=== PATIENT | female | born 1945 | race Caucasian/White ===

== ENCOUNTER 2017-06-12 11:49 | Inpatient (IN) | payer MEDICARE ==
[~2017-06-12] VITALS: Ht 157.5 cm; Wt 64.2 kg
[~2017-06-12 11:49] MED LIST: BREO ELLIPTA 11 EACH INH; CALCIUM 600 +1 EAC7 PO; CLARITIN 10MG T10 MG PO; COLACE 100MG C100 MG PO; DEXAMETHASONE 44 MG PO; FERROUS SULFAT325 MG PO; FOLIC ACID 1 MG1 MG PO; LEVAQUIN750 MG PO; LEVOTHYROXINE25 MCG PO; LISINOPRIL10 MG PO; LOPRESSOR 50 MG50 MG PO; LORTAB 5-325 M1 EACH PO; MORPHINE SULFAT30 M4 PO; MUCINEX600 MG PO; NEURONTIN 300300 MG PO; PROTONIX 40 MG40 M1 PO; PROVENTIL HFA 61 INH INH; PULMICORT0.5 MG/2 M INH; REVLIMID25 MG PO; SYMBICORT 160-1 INHA INH; VELCADE SQ; VITAMIN B-122000 MC1 PO; VITAMIN C 500500 MG PO; XARELTO20 MG PO; ZANTAC300 MG PO; ZESTRIL10 MG PO; ZOMETA4 MG/5 ML INJ; ZOVIRAX 800 MG800 MG PO
[2017-06-12 16:24] LABS: HEMOGLOBIN 9.7 gm/dl (12.3-15.3); RED BLOOD COUNT 2.78 M/UL (4.00-5.10); WHITE BLOOD COUNT 9.7 K/UL (4.5-11.0)
[2017-06-13 04:18] LABS: HEMOGLOBIN 7.9 gm/dl (12.3-15.3); WHITE BLOOD COUNT 9.4 K/UL (4.5-11.0)
[2017-06-13 04:20] LABS: RED BLOOD COUNT 2.26 M/UL (4.00-5.10)
[2017-06-13] MEDS ORDERED: OMEPRAZOLE20 MG PO (12:58)
[2017-06-13] MEDS ORDERED: SYMBICORT 16010.2 GM INH (13:04)
[2017-06-13] MEDS ORDERED: ZYRTEC10 MG PO (13:04)
[2017-06-14 04:56] LABS: HEMOGLOBIN 7.2 gm/dl (12.3-15.3)
[2017-06-14 05:09] LABS: RED BLOOD COUNT 2.03 M/UL (4.00-5.10)
[2017-06-15 04:21] LABS: HEMOGLOBIN 9.5 gm/dl (12.3-15.3); RED BLOOD COUNT 2.8 M/UL (4.00-5.10); WHITE BLOOD COUNT 7.8 K/UL (4.5-11.0)
[2017-06-15] MEDS ORDERED: LEVAQUIN750 MG PO (11:03)
== END 2017-06-15 11:45 | disposition home or self-care (01) | DRG 314 ==
LOC: ER1 11:49 → ZEROF 20:30 → PROG CARE 20:30
PROVIDERS: Emergency Medicine; Internal Medicine; Internal Medicine Nephrology; ADMIT Hospitalist
DX: T82.7XXA Infection and inflammatory reaction due to other cardiac and vascular devices, implants and grafts, initial encounter (principal); J81.0 Acute pulmonary edema; C90.00 Multiple myeloma not having achieved remission; J90 Pleural effusion, not elsewhere classified; N17.9 Acute kidney failure, unspecified; D51.8 Other vitamin B12 deficiency anemias; R30.0 Dysuria; D64.81 Anemia due to antineoplastic chemotherapy; D69.6 Thrombocytopenia, unspecified; I10 Essential (primary) hypertension; Z95.828 Presence of other vascular implants and grafts; Z92.21 Personal history of antineoplastic chemotherapy; J44.9 Chronic obstructive pulmonary disease, unspecified; K22.8 Other specified diseases of esophagus; Z79.899 Other long term (current) drug therapy; Z79.891 Long term (current) use of opiate analgesic
CPT/HCPCS: 36600; 70450; 71010; 71020; 80048; 80053; 80202; 81001; 82436; 82570; 82803; 83605; 83690; 84133; 84156; 84300; 84484; 85025; 85027; 85610; 85730; 86850; 86900; 86901; 86920; 87040; 87086; 89050; 93005; 94640; 94664; C1751; C9113; G0008; J0360; J1642; J1650; J1940; J1956; J2405; J2543; J3370; J7030; J7040; J7050; J7070; P9040; Q2039

== ENCOUNTER 2021-03-03 22:21 | Inpatient (IN) | payer MEDICARE ==
[~2021-03-03] VITALS: Ht 157.5 cm; Wt 73.0 kg
[~2021-03-03 22:21] MED LIST changes: +ALBUTEROL2.5 MG/3 M INH; +AUGMENTIN 875-1 EACH PO; +DEXAMETHASONE4 MG PO; +ECOTRIN81 MG PO; +FERROUS SULFAT325 M2 PO; +FOLIC ACID PO; +LEVAQUIN TAB 5500 MG PO; +LEVOTHYROXINE50 MCG PO; +MORPHINE SULFAT15 M2 PO; +NEURONTIN600 MG PO; +NORCO 5-325 TA1 EACH PO; +OMEPRAZOLE20 M1 PO; +OMEPRAZOLE20 MG PO; +POMALYST4 MG PO; +SYMBICORT 16010.2 GM INH; +TESSALON PERLE100 MG PO; +THERAGRAN M TAB1 EA PO; +VITAMIN B-122500 MCG SL; +VITAMIN D3125 MC1 PO; +ZOMETA IM; +ZOVIRAX 200 MG200 MG PO; +ZYRTEC10 MG PO
[2021-03-03 22:55] LABS: HEMOGLOBIN 13.4 gm/dl (12.3-15.3); RED BLOOD COUNT 4.39 M/UL (4.00-5.10); WHITE BLOOD COUNT 7.2 K/UL (4.5-11.0)
[2021-03-04] MEDS ORDERED: MS CONTIN15 MG PO (05:03)
[2021-03-04] MEDS ORDERED: MYCOSTATIN100000 UTS PO (05:34)
[2021-03-04] MEDS ORDERED: PREDNISONE5 MG PO (05:35)
[2021-03-04] MEDS ORDERED: LEVOTHYROXINE50 MC1 PO (05:36)
[2021-03-04] MEDS ORDERED: ESCITALOPRAM OX20 MG PO (05:38)
[2021-03-04] MEDS ORDERED: POMALYST4 MG PO (05:39)
[2021-03-04] MEDS ORDERED: CALCIUM500 MG PO (05:41)
[2021-03-04] MEDS ORDERED: DIFLUCAN150 MG PO (05:42)
[2021-03-04 05:59] LABS: HEMOGLOBIN 11.9 gm/dl (12.3-15.3)
[2021-03-04 06:00] LABS: RED BLOOD COUNT 3.86 M/UL (4.00-5.10); WHITE BLOOD COUNT 4.4 K/UL (4.5-11.0)
[2021-03-05 04:05] LABS: HEMOGLOBIN 11.5 gm/dl (12.3-15.3); RED BLOOD COUNT 3.56 M/UL (4.00-5.10); WHITE BLOOD COUNT 2.8 K/UL (4.5-11.0)
[2021-03-05 04:30] LABS: BUN/CREATININE RATIO 18 (0-10)
[2021-03-06 04:27] LABS: HEMOGLOBIN 10.7 gm/dl (12.3-15.3); RED BLOOD COUNT 3.41 M/UL (4.00-5.10)
[2021-03-06 04:48] LABS: WHITE BLOOD COUNT 3.6 K/UL (4.5-11.0)
[2021-03-06 04:59] LABS: BUN/CREATININE RATIO 13 (0-10)
== END 2021-03-06 17:36 | disposition home health service (06) | DRG 871 ==
LOC: ER1 22:21 → CCU 03-04 01:51 → PROG CARE 03-04 01:51 → CDU 03-04 01:51 → CCU 03-04 03:47 → PROG CARE 03-05 19:49
PROVIDERS: Emergency Medicine; Internal Medicine; Physician Assistant; ADMIT Internal Medicine
PROC: 3E033XZ Introduction of Vasopressor into Peripheral Vein, Percutaneous Approach (ICD-10-PCS; principal; 2021-03-04)
PROC: B24BZZ4 Ultrasonography of Heart with Aorta, Transesophageal (ICD-10-PCS; 2021-03-04)
DX: A41.89 Other specified sepsis (principal); R65.21 Severe sepsis with septic shock; D61.810 Antineoplastic chemotherapy induced pancytopenia; G93.41 Metabolic encephalopathy; J96.21 Acute and chronic respiratory failure with hypoxia; Z20.822 Contact with and (suspected) exposure to COVID-19; C90.00 Multiple myeloma not having achieved remission; D84.9 Immunodeficiency, unspecified; N39.0 Urinary tract infection, site not specified; K52.1 Toxic gastroenteritis and colitis; N18.30 Chronic kidney disease, stage 3 unspecified; I12.9 Hypertensive chronic kidney disease with stage 1 through stage 4 chronic kidney disease, or unspecified chronic kidney disease; E87.6 Hypokalemia; E78.5 Hyperlipidemia, unspecified; T36.95XA Adverse effect of unspecified systemic antibiotic, initial encounter; D63.1 Anemia in chronic kidney disease; T45.1X5A Adverse effect of antineoplastic and immunosuppressive drugs, initial encounter; E83.42 Hypomagnesemia; E03.9 Hypothyroidism, unspecified; E86.0 Dehydration; K20.90 Esophagitis, unspecified without bleeding; J44.9 Chronic obstructive pulmonary disease, unspecified; I48.0 Paroxysmal atrial fibrillation; Z79.01 Long term (current) use of anticoagulants; Z80.9 Family history of malignant neoplasm, unspecified; Z79.82 Long term (current) use of aspirin; Z79.899 Other long term (current) drug therapy; Z88.6 Allergy status to analgesic agent; Z87.891 Personal history of nicotine dependence; Z82.49 Family history of ischemic heart disease and other diseases of the circulatory system
CPT/HCPCS: ECHO; 0240U; 36415; 36600; 70450; 71045; 71275; 76705; 80048; 80053; 80202; 80307; 81001; 82550; 82553; 82803; 83605; 83735; 83880; 84100; 84132; 84484; 85025; 87040; 87070; 87077; 87086; 87186; 87205; 87449; 93005; 93306; 94640; 94760; 96374; 96375; 99285; J0692; J1650; J1720; J2370; J3370; J3475; J3480; J7030; J7070; Q9967

== ENCOUNTER → 2021-11-22 | Outpatient (CLI) | payer MEDICARE ==
[~2021-11-22] MED LIST changes: +CALCIUM500 MG PO; +DIFLUCAN150 MG PO; +ESCITALOPRAM OX20 MG PO; +LEVOTHYROXINE50 MC1 PO; +MS CONTIN15 MG PO; +MYCOSTATIN100000 UTS PO; +PREDNISONE5 MG PO
== END ==
LOC: RT 10:31
DX: J44.9 Chronic obstructive pulmonary disease, unspecified (principal)
CPT/HCPCS: 36600; 82803

== ENCOUNTER → 2021-11-22 | Outpatient (CLI) | payer MEDICARE | LOC: HEART 5 09:31 | DX: J44.9 Chronic obstructive pulmonary disease, unspecified (principal) | CPT/HCPCS: 36600; 71046; 82803; 94060; 94729 ==

== ENCOUNTER → 2022-06-26 | Outpatient (CLI) | payer MEDICARE | LOC: KOH-I 11:58 | DX: C90.00 Multiple myeloma not having achieved remission (principal); D51.8 Other vitamin B12 deficiency anemias; R30.0 Dysuria; M19.011 Primary osteoarthritis, right shoulder | CPT/HCPCS: 73030 ==